=== PATIENT | female | born 1995 | race Caucasian/White ===

== ENCOUNTER 2019-11-27 09:37 | Emergency (ER) | payer BC, SELFPAY ==
[2019-11-27 09:55] VITALS: BP 108/52; PULSE 60; RESP 16; TEMP 36.6; O2SAT 100
--- NOTE | 2019-11-27 10:20 | ED.SKABFB ---
HPI - Skin/Abscess/Foreign Bdy General Chief complaint: Skin/Abscess/Foreign Body Stated complaint: fb ear Time Seen by Provider: 11/27/19 10:09 Source: patient Mode of arrival: ambulatory Limitations: no limitations History of Present Illness HPI narrative: Patient presents the emergency department for earring stuck in right ear cartilage x3 weeks. Reports she had a similar problem years ago and was able to get this removed in the ED. Reports her skin has grown over the back of the earring. Denies fever, erythema or drainage. Related Data Home Medications Medication Instructions Recorded Confirmed spironolactone 11/27/19 Allergies Allergy/AdvReac Type Severity Reaction Status Date / Time No Known Allergies Allergy Unverified 11/27/19 10:13 Review of Systems Review of Systems: Narrative: CONSTITUTIONAL: Denies fever ENT: Denies otalgia or drainage. SKIN: Denies erythema All systems reviewed & are unremarkable except as noted in HPI and below PMFSH Social History Social History (Updated 11/27/19 @ 10:26 by Magda Lara PA-C) Smoking status: Current every day smoker Substance use: never Gender identity (if verbalized by the patient): Female Exam Narrative: Exam Narrative: GENERAL: Well-appearing, well-nourished, and in no acute distress. HEAD: Normocephalic, atraumatic. EYES: EOMI. ENT: Right external ear scapha with earring present with skin grown over the back, unable to visualize back of earring. Unable to remove EXTREMITIES: Normal range of motion. No edema. SKIN: Warm, dry, no rash. NEURO: No focal deficits. Alert and oriented x3. PSYCH: Normal mood and affect Course Vital Signs Vital signs: Vital Signs Temperature 98 F 11/27/19 09:55 Pulse Rate 60 11/27/19 09:55 Respiratory Rate 16 11/27/19 09:55 Blood Pressure 108/52 L 11/27/19 09:55 Pulse Oximetry 100 11/27/19 09:55 Temperature 98 F 11/27/19 09:55 Pulse Rate 60 11/27/19 09:55 Respiratory Rate 16 11/27/19 09:55 Blood Pressure 108/52 L 11/27/19 09:55 Pulse Oximetry 100 11/27/19 09:55 MDM - Skin/Abscess/Foreign Bdy MDM Narrative Medical decision making narrative: Patient presents to the emergency department for hearing stuck in her right cartilage. Reports this has been present for several weeks. Her skin has now grown around the earring and is stuck in the cartilage of her ear. I spoke with patient about needing to see plastic surgery to get this removed. Reports she would have better cosmetic result if done by them. Patient agrees. She was given warnings to return to the ER Critical Care Time Critical Care Time Critical Care Time: No Discharge Plan Discharge Clinical Impression: Foreign body of right external ear Patient Disposition: Home, Self-Care Condition: Stable Instructions: Soft Tissue Foreign Body (ED) Additional Instructions: Return to the emergency department if you experience fever, redness and swelling of your ear, abnormal drainage from piercing, or any other symptoms that are concerning to you Follow-up with plastic surgery for removal of your earring. Call to make an appointment Prescriptions: No Action spironolactone 100 mg tablet RF: 0 Follow-up/Referrals: Rod Alvarez MD [Physician] - 3 Days Chago Beltran MD [Physician] - 3 Days PHYSICIAN,PILOT PLANT TECHNICIAN [Primary Care Provider] -
[2019-11-27 10:35] VITALS: RESP 16
== END 2019-11-27 10:36 | disposition home or self-care (01) ==
PROVIDERS: Emergency Provider Emergency Medicine
DX: S00.451A Superficial foreign body of right ear, initial encounter (principal); F17.210 Nicotine dependence, cigarettes, uncomplicated; W45.8XXA Other foreign body or object entering through skin, initial encounter
CPT/HCPCS: 99281

== ENCOUNTER 2022-09-20 08:49 | Outpatient (RCR) | payer BC, SELFPAY ==
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
== END 2022-09-20 13:25 | disposition home or self-care (01) ==
LOC: ANHPT 08:49
DX: S06.5X Traumatic subdural hemorrhage (principal); S32.82XD Multiple fractures of pelvis without disruption of pelvic ring, subsequent encounter for fracture with routine healing; S52.201D Unspecified fracture of shaft of right ulna, subsequent encounter for closed fracture with routine healing; S12.590D Other displaced fracture of sixth cervical vertebra, subsequent encounter for fracture with routine healing; G93.89 Other specified disorders of brain
CPT/HCPCS: 92523; 97161; 97165

== ENCOUNTER → 2022-09-22 10:32 | Outpatient (CLI) | payer BC, SELFPAY ==
--- NOTE | ~2022-09-22 | XR_ITS ---
Supine views of the abdomen Clinical history: Right flank pain COMPARISON: 12/17/2017 Findings: Bowel gas pattern is nonspecific. No evidence for obstruction or free air. No abnormal mass lesion or calcification is seen. There are probable subacute fractures of the left superior and infe rior pubic rami, questionably of the right inferior pubic ramus.. Impression: No soft tissue abnormality evident. Probable subacute fractures of the left superior and inferior pubic rami, and probably of the right i nferior pubic ramus as well. Reviewed, dictated and finalized at location [] ER SHEET CLERK Impression: No soft tissue abnormality evident. Probable subacute fractures of the left superior and inferior pubic rami, and p robably of the right inferior pubic ramus as well.
== END ==
PROVIDERS: PCP Physician Assistant; Visit Provider Physician Assistant
DX: R10.9 Unspecified abdominal pain (principal)
CPT/HCPCS: 74018